=== PATIENT | male | born 1965 | race Native Hawaiian/Other Pacific Islander ===

== ENCOUNTER 2019-07-18 16:15 | Emergency (ER) | payer OTHER ==
[~2019-07-18] VITALS: Ht 185.4 cm; Wt 99.8 kg
[2019-07-18 18:50] VITALS: BP 127/73; TEMP 98.2
== END 2019-07-18 18:51 | disposition home or self-care (01) ==
LOC: ED 16:15
PROC: 0HQKXZZ Repair Right Lower Leg Skin, External Approach (ICD-10-PCS; principal; 2019-07-18)
DX: S81.811A Laceration without foreign body, right lower leg, initial encounter (principal); W45.8XXA Other foreign body or object entering through skin, initial encounter
CPT/HCPCS: 90471; 90715; 96372; 99283; J1885; J7040

== ENCOUNTER 2020-06-12 09:22 | Outpatient (CLI) | payer OTHER | END 2020-06-12 19:08 | disposition home or self-care (01) | LOC: US 09:22 | DX: R10.12 Left upper quadrant pain (principal) ==

== ENCOUNTER 2020-07-05 07:38 | Day surgery (SDC) | payer OTHER ==
[2020-07-03 14:01] LABS: PLATELET COUNT 227 K/uL (142-355)
[2020-07-03 14:03] LABS: POTASSIUM 4.1 mmol/L (3.6-5.2)
[~2020-07-05] VITALS: Ht 30.5 cm; Wt 0.5 kg
== END 2020-07-05 12:37 | disposition home or self-care (01) ==
LOC: OR 07:38
PROVIDERS: Student in an Organized Health Care Education/Training Program
PROC: 0FT44ZZ Resection of Gallbladder, Percutaneous Endoscopic Approach (ICD-10-PCS; principal; 2020-07-05)
DX: K80.10 Calculus of gallbladder with chronic cholecystitis without obstruction (principal)
CPT/HCPCS: 80053; 85027; J0690; J1100; J2001; J2175; J2250; J2270; J2370; J2405; J2704; J2795; J3010; J3490

== ENCOUNTER 2022-02-23 13:20 | Emergency (ER) | payer OTHER ==
[~2022-02-23] VITALS: Ht 182.9 cm; Wt 560.2 kg
[2022-02-23 13:20] VITALS: TEMP 96
[2022-02-23 16:23] VITALS: BP 148/76
== END 2022-02-23 16:31 | disposition home or self-care (01) ==
LOC: ED 13:34 → EDSTATUS 13:34 → ED 16:31
DX: M54.59 Other low back pain (principal); M51.27 Other intervertebral disc displacement, lumbosacral region; R31.9 Hematuria, unspecified; X50.1XXA Overexertion from prolonged static or awkward postures, initial encounter; Y92.89 Other specified places as the place of occurrence of the external cause
CPT/HCPCS: 80307; 81000; 96372; 99283; J1885; J2930

== ENCOUNTER 2023-03-03 14:35 | Outpatient (CLI) | payer OTHER | END 2023-03-03 20:11 | disposition home or self-care (01) | LOC: MRI 14:35 | PROVIDERS: ATTEND Nurse Practitioner Family | DX: H90.A22 Sensorineural hearing loss, unilateral, left ear, with restricted hearing on the contralateral side (principal) | CPT/HCPCS: 36415; 82565; 84520; A9576 ==